=== PATIENT | female | born 1985 | race Caucasian/White ===

== ENCOUNTER 2022-03-20 08:47 | Outpatient (CLI) | payer BC, SELFPAY ==
--- NOTE | ~2022-03-20 | CT_ITS ---
EXAMINATION: CT abdomen pelvis w con DATE: 03/20/2022 09:13 INDICATION: Unspecified abdominal pain. Abdominal bulge near umbilicus. History of bariatric surgery. TECHNIQUE: Computed tomography (CT) of the abdomen and pelvis was performed with 100 CC Omnipaque 350 intravenous contrast. Automated exposure control and iterative reconstruction technique were employe d. Exam dose: 1018.13 mGy-cm total exam DLP. COMPARISON: 05/2018 CT abdomen pelvis FINDINGS: There is mild discoid atelectasis and/or scarring but no consolidation at the lung bases. N ormal heart size. No pericardial or pleural effusion. Status post gastric bypass. The liver, gallbladder, bile ducts, pancreas, pancreatic duct and spleen and adrenal glands appear no rmal. No renal space occupying mass lesion is detected. No hydroureteronephrosis. Peripherally enhancing 1.7 cm left ovarian cyst the uterus and adnexal areas and urinary bladder othe rwise are unremarkable. Normal caliber of the abdominal aorta. No intraperitoneal or retroperitoneal or pelvic mass lesion or adenopathy or ascites. No bowel obstruction or intraperitoneal free air. There are some fluid containing small bowel segment s with air-fluid levels in the left mid and bilateral lower abdomen which may represent enteritis or mild adynamic ileus. Approximately 2.4 cm wide 2.2 cm vertical and 1.4 cm deep fat-containing right supraumbilical hernia with approximately 7.5 mm neck. Small fat-containing umbilical hernia. Very prominent posterior spurring is noted at L4-5 and L3-4. Posterior disc bulging at L5-S1. No suspicious osteolytic or osteoblastic lesions are noted. IMPRESSION: 2.4 x 2.2 x 1.4 cm right supraumbilical ventral abdominal wall fat-containing hernia Small fat-containing umbilical hernia Status post gastric bypass Involuting 1.7 cm left ovarian cyst Mild adynamic ileus or enteritis Reviewed, dictated and finalized at Location A. Reviewed, dictated and finalized at location B. IMPRESSION: 2.4 x 2.2 x 1.4 cm right supraumbilical ventral abdominal wall fat -containing hernia Small fat-containing umbilical hernia Status post gastric bypass Involuting 1.7 cm left ovarian cyst Mild adynamic ileus or enteritis
== END 2022-03-20 08:48 ==
PROVIDERS: PCP Family Medicine
DX: R10.9 Unspecified abdominal pain (principal); K43.9 Ventral hernia without obstruction or gangrene; K42.9 Umbilical hernia without obstruction or gangrene; N83.202 Unspecified ovarian cyst, left side
CPT/HCPCS: 74177; Q9967

== ENCOUNTER 2024-11-03 09:43 | Outpatient (CLI) | payer BC, SELFPAY ==
--- NOTE | ~2024-11-03 | MM_ITS ---
EXAMINATION: MM screening kathi BI w kimmy HISTORY: Screening mammogram TECHNIQUE: Craniocaudal and mediolateral oblique 3-D tomosynthesis images were obtained and synthetic 2-D images were generated. CAD analysis was submitted and interpreted. COMPARISON: No prior mammogram is available for comparison at this institution. BREAST PARENCHYMAL COMPOSITION:Not Dense. There are scattered areas of fibroglandular density. FINDINGS: No suspicious mass, calcification, or architectural distortion are identified in either josesito ast to suggest malignancy. There has been no suspicious interval change. IMPRESSION: No mammographic evidence of malignancy. Recommend routine screening mammography in one year. BI-RADS Category 1: Negative Reviewed, dictated and finalized at location . LE PROGRAMMER
--- OUTSIDE RECORDS SUMMARY | 2024-11-03 10:36 | XMS_ITS | Referral Summary ---
Author Organization [facility] Address [address] [place] [address] Care Team Providers Care Payloader Machine Operator Name Role Phone Unavailable Primary Care Provider Unavailabl e Source Comments [facility],non-owned Affiliates and Associated Physician Practices is amultiple site organization consisting of ambulatory clinics and hospital sitesin [place], [place], [place] and [place]. This disclosure is being madepursuant to the Care Everywhere program and may not contain all information available regarding this patient. Last updated 18.[facility] Allergies Active Allergy Reactions Criticality Noted Date Comments Penicillins 07/11/2016 Azithromycin 07/11/2016 Medications * Be aware that medications may not be up to date on this document. Alwaysverify current medications with the patient. Medication Sig Dispensed Refills Start Date End Date Status fluticasone propionate (FLONASE) 50 MCG/ACT nasal sprayIndications:Eust achian tube disorder, bilateral [place] 2 Sprays into each nostril once daily 1 Bottle 07/11/2016 Active Social History Tobacco Use Types Packs/Day Years Used Date Smoking Tobacco: Every Day Cigarettes Sex and Gender Information Value Date Recorded Sex Assigned at Not on file Gender Identity Not on file Sexual Orientation Not on file Last Filed Vital Signs Vital Sign Reading Time Taken Comments Blood Pressure 128/82 07/11/2016 11:10 AM PORCELAIN TECHNICIAN Pulse 87 07/11/2016 11:10 AM PORCELAIN TECHNICIAN Temperature 36.8 C (98.2 F) 07/11/2016 11:10 AM PORCELAIN TECHNICIAN Respiratory Rate 20 07/11/2016 11:10 AM PORCELAIN TECHNICIAN Oxygen Saturation - - Inhaled Oxygen Concentration - - Weight 97.5 kg (215 lb) 07/11/2016 11:10 AM PORCELAIN TECHNICIAN Height 165.1 cm (5' 5 ) 07/11/2016 11:10 AM PORCELAIN TECHNICIAN Body Mass Index 35.78 07/11/2016 11:10 AM PORCELAIN TECHNICIAN Plan of Treatment Upcoming Encounters Date Type Department Care Team (Late st Contact Info) Description 12/15/2024 9:40 AM CDT Office Visit [facility] - Internal Medicine [address] [place] [address] Ector Reyes MD [address] [place] [address] [phone] ESTEBAN NGUYEN Personal/Family 1985 [address] [place] [address]
--- OUTSIDE RECORDS SUMMARY | 2024-11-03 10:36 | XMS_ITS | Clinical Summary ---
Author Organization [facility] Address [address] [place] [address] Care Team Providers Care Bird Tender Name Role Phone Unavailable Primary Care Provider Unavailabl e Source Comments [facility],non-owned Affiliates and Associated Physician Practices is amultiple site organization consisting of ambulatory clinics and hospital sitesin [place], [place], [place] and [place]. This disclosure is being madepursuant to the Care Everywhere program and may not contain all information available regarding this patient. Last updated 18.[facility] Allergies Active Allergy Reactions Criticality Noted Date Comments Penicillins 07/11/2016 Azithromycin 07/11/2016 Medications * Be aware that medications may not be up to date on this document. Alwaysverify current medications with the patient. Medication Sig Dispensed Refills Start Date End Date Status fluticasone propionate (FLONASE) 50 MCG/ACT nasal sprayIndications:Eust achian tube disorder, bilateral [place] 2 Sprays into each nostril once daily [...] Comments Blood Pressure 128/82 07/11/2016 11:10 AM DOCK HAND Pulse 87 07/11/2016 11:10 AM DOCK HAND Temperature 36.8 C (98.2 F) 07/11/2016 11:10 AM DOCK HAND Respiratory Rate 20 07/11/2016 11:10 AM DOCK HAND Oxygen Saturation - - Inhaled Oxygen Concentration - - Weight 97.5 kg (215 lb) 07/11/2016 11:10 AM DOCK HAND Height 165.1 cm (5' 5 ) 07/11/2016 11:10 AM DOCK HAND Body Mass Index 35.78 07/11/2016 11:10 AM DOCK HAND Plan of Treatment Upcoming Encounters Date Type Department Care Team (Late st Contact Info) Description 12/15/2024 9:40 AM CDT Office Visit [facility] - Internal Medicine [address] [address] Ector Reyes MD [address] [place] [address] [phone] Health Maintenance Due Date Last Done Comments LIPID TESTING 1985 MAMMOGRAM 1985 PAP SMEAR 1985 HIV SCREENING 1998 HEPATITIS C SCREENING 07/09/2001 DTAP/TDAP/TD VACCINES (1 - Tdap) 2002 HEPATITIS B VACCINE (1 of 3 - 19+ 3-dose series) 2002 PNEUMOCOCCAL VACCINE (1 of 2 - PCV) 2002 COVID-19 VACCINE (1 - 2023-2 5 season) 2024 INFLUENZA VACCINE (#1) 2024 , 06/30/2018, 05/31/2016 DEPRESSION SCREENING 09/01/2024 ZOSTER VACCINE (1 of 2) 2033 HIB VACCINE Aged Out No longer eligi ble based on patient's age to complete this topic HPV VACCINE Aged Out No longer eligi ble based on patient's age to complete this topic MENINGOCOCCAL (Group B) VACCINE Aged Out No longer eligible b ased on patient's age to complete this topic MENINGOCOCCAL VACCINE Aged Out No toya nick eligible based on patient's age to complete this topic ESTEBAN NGUYEN Personal/Family 1985 [address] [place] [address]
--- OUTSIDE RECORDS SUMMARY | 2024-11-03 10:36 | XMS_ITS | Clinical Summary ---
Author Organization [facility] Address [address] [place] [address] Phone Care Team Providers Care Licensed Appraiser Name Role Phone Ester Andrade MD Primary Care Provider [phone] Allergies Active Allergy Reactions Criticality Noted Date Comments Azithromycin Anaphylaxis High 01/20/2023 Penicillins Hives High 01/12/2021 Medications HYDROcodone-aceta minophen (HYCET) 7.5-325 mg/15 mL SolutionIndicatio ns:Status post laparoscopic sleeve gastrectomy,Herni a of abdominal cavity Take 15 mL by mouth every 6 hours as needed for Pain. Max Daily Amount: 60 mL 280 mL 02/03/2023 11:01 AM CDT 02/03/2023 Active Active Problems Problem Noted Date Diagnosed Date Benign hypertension 03/19/2021 Morbid obesity with body mass index of 40.0-49.9 03/19/2021 Status post laparoscopic sleeve gastrectomy 03/01 Leukocytosis Tobacco abuse Chronic obstructive pulmonary disease Postoperative hypoxia Family History Medical History Relation Name Comments Hypertension Father Breast Cancer Maternal Grandmother Diabetes Mother Heart Disease Mother Relation Name Status Comments Father Alive Maternal Grandmother Mother Alive Social History Tobacco Use Types Packs/Day Years Used Date Smoking Tobacco: Some Days Cigarettes 0.3 20 Smokeless Tobacco: Never Alcohol Use Standard Drinks/Week Comments Yes 0 (1 standard drink = 0.6 oz pur e alcohol) once a year Feeling Safe Answer Date Recorded Are you in a relationship wi th someone who hurts you emotionally and/or physically? No 02/03/2023 Comments No Sex and Gender Information Value Date Recorded Sex Assigned at Not on file Legal Sex Female 12:43 PM CDT Gender Identity Not on file Sexual Orientation Not on file Last Filed Vital Signs Vital Sign Reading Time Taken Comments Blood Pressure 115/77 02/03/2023 11:10 AM CDT Pulse 72 02/03/2023 11:10 AM CDT Temperature 36.4 C (97.5 F) 02/03/2023 10:49 AM CDT Respiratory Rate 12 02/03/2023 10:4 9 AM CDT Oxygen Saturation 94% 02/03/2023 11: 10 AM CDT Inhaled Oxygen Concentration - - Weight 98.3 kg (216 lb 12.8 oz) 023 10:23 AM CDT Height 167.6 cm (5' 6 ) 01/29/2023 10:2 3 AM CDT Body Mass Index 34.99 01/29/2023 10:23 AM CDT Plan of Treatment Health Maintenance Due Date Last Done Comments Pre-Diabetes and Diabetes Screening 1985 PNEUMOCOCCAL VACCINE 0-49 YE ARS (1 of 2 - PCV) 1989 DTAP/TDAP/TD VACCINES (1 - Tdap) 2002 HEPATITIS B VACCINES (1 of 3 - 19+ 3-dose series) 2002 CERVICAL CANCER SCREENING 2013 BREAST CANCER SCREENING 2023 INFLUENZA VACCINE (#1) 2024 HPV VACCINES Aged Out No longer eligi ble based on patient's age to complete this topic Medical Devices Implanted Type Area Block Making Machine Operator Device Identifier Shelf Expiration Date Model / Serial / Lot Tacker Sorbafix 30/Load [id number] - [id number] Implanted:Qt y: 1 on 02/03/2023 by Jn Erwin MD at [facility] N/A: Abdomen BARD DAVOL 03/28/2024 [id number] / / [id number] Seamguard Endogia 60 Prpl [id number] - [id number] Implanted:Qt y: 1 on 03/19/2021 by Jn Erwin MD at [facility] N/A: Stomach [employer] [id number] 11/09/2023 [id number] / / [id number] Seamguard Endogia 60 Prpl [id number] - [id number] Implanted:Qt y: 1 on 03/19/2021 by Jn Erwin MD at [facility] N/A: Stomach [employer] [id number] 11/09/2023 [id number] [id number] / / [id number] Seamguard Endogia 60 Blk [id number] - [id number] Implanted:Qt y: 1 on 03/19/2021 by Jn Erwin MD at [facility] N/A: Stomach [employer] [id number] 09/26/2023 [id number] / / [id number] Seamguard Endogia 60 Blk [id number] - [id number] Implanted:Qt y: 1 on 03/19/2021 by Jn Erwin MD at [facility] N/A: Stomach [employer] [id number] 11/08/2023 [id number] [id number] / / [id number] Seamguard Endogia 60 Prpl [id number] - [id number] Implanted:Qt y: 1 on 03/19/2021 by Jn Erwin MD at [facility] N/A: Abdomen [employer] 11/09/2023 [id number] [id number] / / [id number] Planting Material Unloader Endoclip Iii 5mm W/Cliplogic [id number] - [id number] Implanted:Qt y: 1 on 03/19/2021 by Jn Erwin MD at [facility] N/A: Abdomen [employer] - COVIDIEN 10/01/2023 [id number] / / [id number] Mesh [address] Med Oval [id number] - [id number] Implanted:Qt y: 1 on 02/03/2023 by Jn Erwin MD at [facility] N/A: Abdomen BARD DAVOL 11/27/2023 [id number] / / [id number] Insurance BCBS BLUE ACCESS/TRUE BLUE PPO RX JAY PLANS (INTERNAL) [facility] RX [employer] Commercial Advance Directives For more information, please contact: [phone] * Full Code (Latest Code Status on File) Date Activated Date Inactivated Comments 03/19/2021 5:10 PM 03/21/2021 2:52 PM Care Teams Licensed Appraiser Relationship Specialty Start Date End Date Ester Andrade MD [address] [place] [address] PCP - General Family Practice 01/09/21
--- OUTSIDE RECORDS SUMMARY | 2024-11-03 10:36 | XMS_ITS | Encounter Summary ---
Author Organization [facility] Address [address] [place] [address] Care Team Providers Care Derrick Hand Name Role Phone Ester Andrade MD Primary Care Provider [phone] Reason for Visit * Reason Onset Date Comments Medical Management 03/19/2021 Spoke w/ Dr. Nguyen Encounter Details Date Type Department Care Team (Late st Contact Info) Description 03/19/2021 Telephone [facility] Admitting [address] [place] [address] [place] [address] [place] [address] [place] [address] Medical Management (Kaley w/ Dr. Nguyen) Social History Tobacco Use Types Packs/Day Years Used Date Smoking Tobacco: Some Days Cigarettes 0.3 20 Smokeless Tobacco: Never Alcohol Use Standard Drinks/Week Comments Yes 0 (1 standard drink = 0.6 oz pur e alcohol) once a year Comments No Sex and Gender Information Value Date Recorded Sex Assigned at Not on file Legal Sex Female 12:43 PM CDT Gender Identity Not on file Sexual Orientation Not on file COVID-19 Exposure Response Date Recorded In the last month, have you been in contact with someone who was confirmed or suspected to have Coronavirus / COVID-19? No / Unsure 03/12/2021 12:08 PM CDT documented as of this encounter Plan of Treatment Not on file documented as of this encounter Visit Diagnoses Not on filedocumented in this encounter Care Teams Derrick Hand Relationship Specialty Start Date End Date Ester Andrade MD [address] [place] [phone] PCP - General Family Practice 01/09/21 documented as of this encounter
--- OUTSIDE RECORDS SUMMARY | 2024-11-03 10:36 | XMS_ITS | Patient Health Summary ---
Author Organization [facility] Address [address] [place] [address] Care Team Providers Care Electric Track Switch Maintainer Name Role Phone Unavailable Primary Care Provider Unavailabl e Note from [facility],non-owned Affiliates and Associated Physician Practices is amultiple site organization consisting of ambulatory clinics and hospital sitesin [place], [place], [place] and [place]. This disclosure is being madepursuant to the Care Everywhere program and may not contain all information available regarding this patient. Last updated 18.[facility] Allergies * Penicillins * Azithromycin Medications * Be aware that medications may not be up to date on this document. Alwaysverify current medications with the patient. * fluticasone propionate (FLONASE) 50 MCG/ACT nasal spray(Started 07/11/2016) [place] 2 Sprays into each nostril once daily Social History Tobacco Use Types Packs/Day Years Used Date Smoking Tobacco: Every Day Cigarettes Sex and Gender Information Value Date Recorded Sex Assigned at Not on file Gender Identity Not on file Sexual Orientation Not on file Last Filed Vital Signs Vital Sign Reading Time Taken Comments Blood Pressure 128/82 07/11/2016 11:10 AM LEATHER TOGGLER Pulse 87 07/11/2016 11:10 AM LEATHER TOGGLER Temperature 36.8 C (98.2 F) 07/11/2016 11:10 AM LEATHER TOGGLER Respiratory Rate 20 07/11/2016 11:10 AM LEATHER TOGGLER Oxygen Saturation - - Inhaled Oxygen Concentration - - Weight 97.5 kg (215 lb) 07/11/2016 11:10 AM LEATHER TOGGLER Height 165.1 cm (5' 5 ) 07/11/2016 11:10 AM LEATHER TOGGLER Body Mass Index 35.78 07/11/2016 11:10 AM LEATHER TOGGLER Procedures * STREP A SCREEN - POINT OF CARE (AMB) STL(Performed 07/11/2016) Performed for Acute pharyngitis, unspecified etiology Results * STREP A SCREEN - POINT OF CARE (AMB) STL (07/11/2016 11:22 AM LEATHER TOGGLER) Strep A Rapid POCT Negative Negative Strep A Internal Control Present Lot # [id number] Expiration Date [id number] Throat ENTIRE THROAT (SURFACE REGION OF NECK) / Unknown 07/11/2016 11:22 AM LEATHER TOGGLER Joycelyn Rubio [employer] [facility] - POINT O F CARE ORDERABLES
== END 2024-11-03 09:44 | disposition home or self-care (01) ==
LOC: ANHIMG 09:45
PROVIDERS: PCP Family Medicine; Visit Provider Obstetrics & Gynecology
DX: Z12.31 Encounter for screening mammogram for malignant neoplasm of breast (principal)
CPT/HCPCS: 77063; 77067

== ENCOUNTER 2025-02-01 08:28 | Outpatient (CLI) | payer BC, SELFPAY ==
--- NOTE | 2025-02-01 08:35 | ECG_ITS ---
Test Date: 2025-02-01 09:03:29 Measurements Intervals [place] Rate: 69 P: 56 AK: 150 QRS: 10 QRSD: 82 T: 17 QT: 400 QTc: 431 Interpretive Statements SINUS RHYTHM BASELINE ARTIFACT- I, II, III, AVR, AVL, AVF, V4 NORMAL ECG No previous ECG available for comparison Electronically Signed On 02-01-2025 09:24:56 CDT by Avinash Canales D.O.
--- OUTSIDE RECORDS SUMMARY | 2025-02-01 08:35 | XMS_ITS | Clinical Summary ---
Author Organization [facility] Address [address] [place] [address] Phone Care Team Providers Care President North America Name Role Phone Ester Andrade MD Primary Care Provider [phone] Allergies Active Allergy Reactions Criticality Noted Date [...] 10:23 AM CDT Height 167.6 cm (5' 6) 01/29/2023 10:2 3 AM CDT Body Mass Index 34.99 01/29/2023 10:23 AM CDT Plan of Treatment Health Maintenance Due Date Last Done Comments Pre-Diabetes and Diabetes Screening 1983 DTAP/TDAP/TD VACCINES (1 - Tdap) 2002 HEPATITIS B VACCINES (1 of 3 - 19+ 3-dose series) 2002 HPV/Cotest (21-29) 2004 CERVICAL CANCER SCREENING 2013 HPV/Cotest (30-65) 2013 PAP SMEAR 2013 BREAST CANCER SCREENING 2023 INFLUENZA VACCINE (#1) 2024 HPV VACCINES Aged Out No longer eligi ble based on patient's age to complete this topic Medical Devices Implanted Type Area Diesel Roller Operator Device Identifier Shelf Expiration Date Model / Serial / Lot Tacker Sorbafix 30/Load [id number] - [id number] Implanted:Qt y: 1 on 02/03/2023 by Jn Erwin MD at [facility] N/A: Abdomen BARD DAVOL 03/28/2024 [id number] / / [id number] Seamguard Endogia 60 Prpl [id number] - [id number] Implanted:Qt y: 1 on 03/19/2021 by Jn Erwin MD at [facility] N/A: Stomach [employer] [id number] 11/09/2023 [id number] / / [id number] Seamguard Endogia 60 Prpl [id number] - [id number] Implanted:Qt y: 1 on 03/19/2021 by Jn Erwin MD at [facility] N/A: Stomach [employer] [id number] 11/09/2023 [id number] / / [id number] Seamguard Endogia 60 Blk [id number] - [id number] Implanted:Qt y: 1 on 03/19/2021 by Jn Erwin MD at [facility] N/A: Stomach [employer] [id number] 09/26/2023 [id number] / / [id number] Seamguard Endogia 60 Blk [id number] - [id number] Implanted:Qt y: 1 on 03/19/2021 by Jn Erwin MD at [facility] N/A: Stomach [employer] [id number] 11/08/2023 [id number] / / [id number] Seamguard Endogia 60 Prpl [id number] - [id number] Implanted:Qt y: 1 on 03/19/2021 by Jn Erwin MD at [facility] N/A: Abdomen [employer] 11/09/2023 [id number] / / [id number] Produce Team Lead Endoclip Iii 5mm W/Cliplogic [id number] - [id number] Implanted:Qt y: 1 on 03/19/2021 by Jn Erwin MD at [facility] N/A: Abdomen MEDTR[employer] - COVIDIEN 10/01/2023 [id number] / / [id number] Mesh [address] Med Oval [id number] - [id number] Implanted:Qt y: 1 on 02/03/2023 by Jn Erwin MD at [facility] N/A: Abdomen BARD DAVOL 11/27/2023 [id number] / / [id number] Insurance BCBS BLUE ACCESS/TRUE BLUE PPO RX JAY PLANS (INTERNAL) [facility] Plans RX [employer] Commercial Advance Directives For more information, please contact: [phone] * Full Code (Latest Code Status on File) Date Activated Date Inactivated Comments 03/19/2021 5:10 PM 03/21/2021 2:52 PM Care Teams President North [place] Relationship Specialty Start Date End Date Ester Andrade MD [address] [place] [address] PCP - General Family Practice 01/09/21
--- OUTSIDE RECORDS SUMMARY | 2025-02-01 08:35 | XMS_ITS | Encounter Summary ---
Author Organization [facility] Address [address] [place] [address] Care Team Providers Care Sieve Grader Tender Name Role Phone Ester Andrade MD Primary Care Provider [phone] Reason for Visit * Reason Onset Date Comments Medical Management 03/19/2021 Spoke w/ Dr. Nguyen Encounter Details Date Type Department Care Team (Late st Contact Info) Description 03/19/2021 Telephone [facility] Admitting [address] [place] [address] [place] [address] [place] [address] [place] [address] Medical Management (Kaley w/ Dr. [...] on filedocumented in this encounter Care Teams Sieve Grader Tender Relationship Specialty Start Date End Date Ester Andrade MD [address] [place] [phone] PCP - General Family Practice 01/09/21 documented as of this encounter
--- OUTSIDE RECORDS SUMMARY | 2025-02-01 08:35 | XMS_ITS | Clinical Summary ---
Author Organization [facility] Address [address] [place] [address] Care Team Providers Care Extract Mixer Name Role Phone Unavailable Primary Care Provider Unavailabl e Source Comments [facility],non-owned Affiliates and Associated Physician Practices is amultiple site organization consisting of ambulatory clinics and hospital sitesin [place], [place], [place] and [place]. This disclosure is being madepursuant to the Care Everywhere program and may not contain all information available regarding this patient. Last updated 18.[facility] [employer] Allergies Active Allergy Reactions Criticality Noted Date Comments Penicillins 07/11/2016 Azithromycin 07/11/2016 Medications * Be aware that medications may not be up to date on this document. Alwaysverify current medications with the patient. fluticasone propionate (FLONASE) 50 MCG/ACT nasal sprayIndication s:Eustachian tube disorder, bilateral [place] 2 Sprays into each nostril once daily 1 Bottle 07/11/2016 Active Social History Tobacco Use Types Packs/Day Years Used Date Smoking Tobacco: Every Day Cigarettes Comments Unknown Sex and Gender Information Value Date Recorded Sex Assigned at Not on file Legal Sex Female 10:56 AM DECKER OPERATOR Gender Identity Not on file Sexual Orientation Not on file Last Filed Vital Signs Vital Sign Reading Time Taken Comments Blood Pressure 128/82 07/11/2016 11:10 AM DECKER OPERATOR Pulse 87 07/11/2016 11:10 AM DECKER OPERATOR Temperature 36.8 C (98.2 F) 07/11/2016 11:10 AM DECKER OPERATOR Respiratory Rate 20 07/11/2016 11:10 AM DECKER OPERATOR Oxygen Saturation - - Inhaled Oxygen Concentration - - Weight 97.5 kg (215 lb) 07/11/2016 11:10 AM DECKER OPERATOR Height 165.1 cm (5' 5) 07/11/2016 11:10 AM DECKER OPERATOR Body Mass Index 35.78 07/11/2016 11:10 AM DECKER OPERATOR Plan of Treatment Health Maintenance Due Date Last Done Comments LIPID TESTING 1983 MAMMOGRAM 1983 PAP SMEAR 1983 HIV SCREENING 1998 HEPATITIS C SCREENING 07/09/2001 DTAP/TDAP/TD VACCINES (1 - Tdap) 2002 HEPATITIS B VACCINE (1 of 3 - 19+ 3-dose series) 2002 PNEUMOCOCCAL VACCINE (1 of 2 - PCV) 2002 COVID-19 VACCINE (1 - 2023-2 5 season) 2024 DEPRESSION SCREENING 09/01/2024 INFLUENZA VACCINE (Season Ended) 2025 06/30/2021, 06/30/2018, 05/31/2016 ZOSTER VACCINE (1 of 2) 2033 HIB VACCINE Aged Out No longer eligi ble based on patient's age to complete this topic HPV VACCINE Aged Out No longer eligi ble based on patient's age to complete this topic MENINGOCOCCAL (Group B) VACCINE SHARED DECISION-MAKING Aged Out No longer eligible based on patient's age to complete this topic MENINGOCOCCAL GROUPS A/C/Y/W VACCINE Aged Out No longer eligible b ased on patient's age to complete this topic Insurance [facility]
[2025-02-01 09:20] LABS: Basophils Absolute Auto 0.1 K/mm3 (0.0-0.1); Basophils Percent Auto 0.5 % (0.2-1.2); Eosinophils Absolute Auto 0.3 K/mm3 (0-0.3); Eosinophils Percent Auto 2.6 % (0-4.4); Hematocrit 41.6 % (37.0-47.0); Hemoglobin 13.5 g/dL (12.0-15.0); Immature Granulocyte Absolute 0.02 K/mm3 (0.00-0.031); Immature Granulocyte Percent A 0.2 % (0-0.5); Lymphocytes Absolute Auto 2.21 K/mm3 (0.9-3.2); Lymphocytes Percent Auto 21.7 % (18.3-44.2); Mean Corpuscular HGB Conc 32.5 g/dl (32-36); Mean Corpuscular Hemoglobin 26.9 pg (26-34); Mean Corpuscular Volume 82.9 fl (80-100); Mean Platelet Volume 9.8 fl (7.4-10.4); Monocytes Absolute Auto 0.9 K/mm3 (0.1-0.6); Monocytes Percent Auto 8.4 % (2.6-8.5); Neutrophils Absolute Auto 6.8 K/mm3 (1.3-6.7); Neutrophils Percent Auto 66.6 % (45.5-73.1); Platelet Count Result 328 k/mm3 (150-375); Red Blood Count 5.02 M/mm3 (4.2-5.4); Red Cell Distribution Width 14.2 % (11.5-14.5); White Blood Count 10.2 K/mm3 (4.5-10.0)
== END 2025-02-01 08:29 | disposition home or self-care (01) ==
LOC: ANHSURGERY 08:33
PROVIDERS: PCP Family Medicine; Visit Provider Obstetrics & Gynecology
DX: N92.0 Excessive and frequent menstruation with regular cycle (principal); I10 Essential (primary) hypertension; Z01.818 Encounter for other preprocedural examination
CPT/HCPCS: 36415; 85025; 86850; 86900; 86901; 93005

== ENCOUNTER 2025-02-04 01:00 | Day surgery (SDC) | payer BC, SELFPAY ==
[2025-01-31 10:27] VITALS: BMI 37.8
--- NOTE | 2025-01-31 10:28 | PC.NURSE ---
Report to the Outpatient Waiting Room, entrance under the green pavilion located off [facility], at time _0600_ on date _[id number]_. Planned Procedure Time: _0730_.? Time changes happen often and if your time is changed the preop area will call you the afternoon before. - You and your visitor will be asked to self-screen and do not enter if you have any COVID symptoms. Please call surgeon if you need to reschedule. - A mask is optional within the hospital at this time. Patients may have clear liquids (water, carbonated beverages, clear teas, apple juice) until 3 hours prior to surgery with a maximum of 20 ounces. - No food from midnight until time of surgery and no smoking, or chewing tobacco (or any form of nicotine). No chewing gum, candy or mints. Take only the following medications with a SIP of water on the morning of surgery: __None DO NOT STOP ANY OF YOUR OTHER PRESCRIPTION MEDICATIONS PRIOR TO SURGERY EXCEPT THE FOLLOWING Hold all vitamins and supplements for 3 days per anesthesiologist. Medications to discontinue per physician ___Patient stopped Phentermine [id number] Date to take last dose Please no make-up, nail ivorian, hairspray, perfume, deodorant, or body powder the day of surgery.? No jewelry (including any body piercings) or valuables the day of surgery, leave them at home.? Please take a shower or bath the night before, or the morning of, surgery with an antibacterial soap.? Wear comfortable, loose fitting clothing.? - Jewelry must be removed prior to entering the operating room.? Rings and piercings that are not removed may be cut off. - The hospital will not accept responsibility for valuables.? - Please leave all valuables, including medications, at home the day of surgery. If you are going home after surgery, a licensed p d driver must drive you home.? - NO public transportation without another adult if you receive anesthesia. - We recommend that an adult stay with you for 24 hours following discharge. - We also recommend that you do not drive, make important decision, drink alcoholic beverages, or take any drugs that were not prescribed by your health care provider for at least 24 hours after your discharge time. Follow any additional instructions given to you from your surgeon. Telephone instructions given to __Rosy___and asked if any additional questions and then verbalized understanding. Patient advised to call surgeon office or pre surgery nurse liaison [phone] if any additional questions.
--- NOTE | 2025-02-01 07:17 | PM.IMHP ---
H&P: HPI History of Present Illness Date/Time: 02/01/25 07:17 Chief Complaint: Excessive bleeding and dysmenorrhea Narrative: 39-year-old female status post ablation who continues to bleed with pain discomfort and dysmenorrhea. Imaging has been on helpful. She will undergo robotic total vaginal hysterectomy and bilateral salpingectomy. Risks and benefits reviewed including not exclusive of , aspiration pneumonia, bleeding, transfusion, perforation injury to bowel, bladder, ureters, or other internal organs with need for open laparotomy. She has had a couple hernia repairs performed the past as well as a gastric sleeve and 2 C sections so scar tissue was expected to be present making this little bit more difficult. Review of Systems Review of Systems: All systems reviewed & are unremarkable except as noted in HPI and below PMFSH Past Medical History Medical History Obesity, morbid, BMI 40.0-49.9 Essential hypertension Tobacco abuse .5-1 PPD x 17 years Surgical History Surgical History Status post gastric bypass for obesity Family History Family History Mother Diabetes mellitus Hypertension Family history of coronary artery disease Family history of diabetes mellitus in first degree relative Family history of heart disease in male family member before age 55 Father Hypertension Sibling Hypertension Social History Social History Smoking packs per day: 1 Smoking cigarettes per day: 20.0 Years smoked: 17 Smoking pack-years: 17.00 Smoking status: Former smoker Tobacco type: cigarettes Second hand tobacco smoke exposure: Yes Smoking end date: 01/31/21 Alcohol intake: never Substance use: never Substance use type: does not use Living arrangements: with family Gender identity (if verbalized by the patient): Female Spiritual care concerns: No Meds Home Medications and Allergies Home Medications ?Medication ?Instructions ?Recorded ?Confirmed ?Type multivitamin 1 tablet PO DAILY 07/11/21 01/31/25 History ergocalciferol (vitamin D2) 1,250 1,250 mcg PO WEEKLY #12 caps 03/29/22 01/31/25 Rx mcg (50,000 unit) capsule (Vitamin D2) cyanocobalamin (vitamin B-12) 1,000 mcg subcut MONTHLY 01/31/25 01/31/25 History 1,000 mcg/mL injection solution phentermine 30 mg capsule 30 mg PO DAILY 01/31/25 01/31/25 History Allergies Allergy/AdvReac Type Severity Reaction Status Date / Time amoxicillin Allergy Unknown Hives Verified 01/31/25 10:18 azithromycin Allergy Unknown blistering Verified 01/31/25 10:18 rash Penicillins Allergy Unknown Hives Verified 01/31/25 10:18 Exam Const: General: cooperative, healthy appearing, comfortable and obese Orientation/consciousness: oriented to person, oriented to place and oriented to time HENMT: Head: normal to inspection Resp: Effort & Inspection: normal respiratory effort Cardio: Rate: regular rate Rhythm: regular rhythm Heart sounds: S1 normal heart sound present and S2 normal heart sound present GI: Inspection: normal to inspection, [place] present and obesity : External Female Exam: normal external appearance Speculum Exam - Vagina: normal appearance of the vagina Speculum Exam - Cervix: normal appearance of the cervix Bimanual exam- vagina & uterus: enlarged Bimanual Exam- Adnexa, other: normal adnexae Assessment and Plan Assessment and plan (1) Excessive bleeding: Code(s): R58 - Hemorrhage, not elsewhere classified Status: Acute Plan Proceed with robotic total vaginal hysterectomy and bilateral salpingectomy
[2025-02-04] VITALS (11 sets, daily range): BP systolic 133–165; BP diastolic 75–99; PULSE 57–79; RESP 15–18; TEMP 36.1–36.7; O2SAT 92–100
--- OUTSIDE RECORDS SUMMARY | 2025-02-04 01:02 | XMS_ITS | Clinical Summary ---
Author Organization [facility] Address [address] [place] [address] Care Team Providers Care Wardrobe Attendant Name Role Phone Unavailable Primary Care Provider Unavailabl e Source Comments [facility],non-owned Affiliates and Associated Physician Practices is amultiple site organization consisting of ambulatory clinics and hospital sitesin [place], [place]. This disclosure is being madepursuant to the Care Everywhere program and may not contain all information available regarding this patient. Last updated 18.[facility] Allergies Active Allergy Reactions Criticality Noted Date Comments Penicillins 07/11/2016 Azithromycin 07/11/2016 Medications * Be aware that medications may not be up to date on this document. Alwaysverify current medications with the patient. fluticasone propionate (FLONASE) 50 MCG/ACT nasal sprayIndication s:Eustachian tube disorder, bilateral [place] 2 Sprays into each nostril once daily 1 Bottle 07/11/2016 Active Social History Tobacco Use Types Packs/Day Years Used Date Smoking Tobacco: Every Day Cigarettes Comments Unknown Sex and Gender Information Value Date Recorded Sex Assigned at Not on file Legal Sex Female 10:56 AM STUDIO OWNER Gender Identity Not on file Sexual Orientation Not on file Last Filed Vital Signs Vital Sign Reading Time Taken Comments Blood Pressure 128/82 07/11/2016 11:10 AM STUDIO OWNER Pulse 87 07/11/2016 11:10 AM STUDIO OWNER Temperature 36.8 C (98.2 F) 07/11/2016 11:10 AM STUDIO OWNER Respiratory Rate 20 07/11/2016 11:10 AM STUDIO OWNER Oxygen Saturation - - Inhaled Oxygen Concentration - - Weight 97.5 kg (215 lb) 07/11/2016 11:10 AM STUDIO OWNER Height 165.1 cm (5' 5) 07/11/2016 11:10 AM STUDIO OWNER Body Mass Index 35.78 07/11/2016 11:10 AM STUDIO OWNER Plan of Treatment Health Maintenance Due Date [...] patient's age to complete this topic Insurance [facility]
--- OUTSIDE RECORDS SUMMARY | 2025-02-04 01:02 | XMS_ITS | Encounter Summary ---
Author Organization [facility] Address [address] [place] [address] Care Team Providers Care Packing Shed Supervisor Name Role Phone Ester Andrade MD Primary Care Provider [phone] Reason for Visit * Reason Onset Date Comments Medical Management 03/19/2021 Spoke w/ Dr. Nguyen Encounter Details Date Type Department Care Team (Late st Contact Info) Description 03/19/2021 Telephone [facility] Admitting [address] [place] [address] [place] [address] [place] [address] [place] [address] Medical Management (Kaley w/ Dr. [...] on filedocumented in this encounter Care Teams Packing Shed Supervisor Relationship Specialty Start Date End Date Ester Andrade MD [address] [place] [phone] PCP - General Family Practice 01/09/21 documented as of this encounter
--- OUTSIDE RECORDS SUMMARY | 2025-02-04 01:02 | XMS_ITS | Clinical Summary ---
Author Organization [facility] Address [address] [place] [address] Phone Care Team Providers Care Dentist Private Practice Name Role Phone Ester Andrade MD Primary Care Provider [phone] Allergies Active Allergy Reactions Criticality Noted Date [...] this topic Medical Devices Implanted Type Area Stamp Collector Device Identifier Shelf Expiration Date Model / Serial / Lot Tacker Sorbafix 30/Load [id number] - [id number] Implanted:Qt y: 1 on 02/03/2023 by Jn Erwin MD at [facility] N/A: Abdomen BARD DAVOL 03/28/2024 [id number] / / [id number] Seamguard Endogia 60 Prpl [id number] - [id number] Implanted:Qt y: 1 on 03/19/2021 by Jn Erwin MD at [facility] N/A: Stomach [employer] [id number] 11/09/2023 [id number] 0P / / [id number] Seamguard Endogia 60 Prpl [id number] - [id number] Implanted:Qt y: 1 on 03/19/2021 by Jn Erwin MD at [facility] N/A: Stomach [employer] [id number] 11/09/2023 [id number] 0P / / [id number] Seamguard Endogia 60 Blk [id number] - [id number] Implanted:Qt y: 1 on 03/19/2021 by Jn Erwin MD at [facility] N/A: Stomach [employer] [id number] 09/26/2023 [id number] 0B / / [id number] Seamguard Endogia 60 Blk [id number] - [id number] Implanted:Qt y: 1 on 03/19/2021 by Jn Erwin MD at [facility] N/A: Stomach [employer] [id number] 11/08/2023 [id number] 0B / / [id number] Seamguard Endogia 60 Prpl [id number] - [id number] Implanted:Qt y: 1 on 03/19/2021 by Jn Erwin MD at [facility] N/A: Abdomen [employer] 11/09/2023 [id number] 0P / / [id number] Salesperson [employer] Endoclip Iii 5mm W/Cliplogic [id number] - [id number] Implanted:Qt y: 1 on 03/19/2021 by Jn Erwin MD at [facility] N/A: Abdomen MEDTRON[employer] - COVIDIEN 10/01/2023 [id number] / / [id number] Mesh [address] Med Oval [id number] - [id number] Implanted:Qt y: 1 on 02/03/2023 by Jn Erwin MD at [facility] N/A: Abdomen BARD DAVOL 11/27/2023 [id number] / / [id number] Insurance BCBS BLUE ACCESS/TRUE BLUE PPO RX JAY PLANS (INTERNAL) [facility] Plans RX [employer] Commercial Advance Directives For more information, please contact: [phone] * Full Code (Latest Code Status on File) Date Activated Date Inactivated Comments 03/19/2021 5:10 PM 03/21/2021 2:52 PM Care Teams Dentist Private Practice Relationship Specialty Start Date End Date Ester Andrade MD [address] [place] [address] PCP - General Family Practice 01/09/21
--- NOTE | 2025-02-04 03:41 | WPDHPUPDATE1 ---
History and Physical Update Update Date/Time: 02/04/25 03:41 History and Physical has been reviewed, including an updated exam of the patient. There are NO changes in the patient's condition. Risks, benefits, and alternatives have been discussed and questions answered. Patient agrees to proceed with procedure.
[2025-02-04] MEDS: ACETAMINOPHEN 500 MG TABLET 1000 MG PO ×4 (06:20→23:50)
[2025-02-04] MEDS: LACTATED RINGERS 1,000 ML 30 ML IV CONT ×2 (06:25→09:03)
[2025-02-04] MEDS: KETOROLAC 15 MG/ML VIAL (*BKC) IV PUSH (06:30)
--- NOTE | 2025-02-04 06:39 | P.PNAN_ITS ---
Anes - Initial Pre Proc Eval Procedure: Operation Date: 02/04/25 07:30 Proposed Procedures p Robotic Assisted Total Vaginal Hysterectomy with Bilateral Salpingectomy - Adolfo Arias MD Date/Time: 02/04/25 06:39 Surgeon: Adolfo Arias MD Pre Op Diagnosis: Failed Uterine ablation, Exc Bleed, Dysmenorrhea Patient Data Age: 39 Gender: F Height: 1.65 m Weight: 104.4 kg Last Vital Signs Temp 36.1 C L 02/04/25 06:15 Pulse 79 02/04/25 06:15 Resp 18 02/04/25 06:15 BP 165/99 H 02/04/25 06:15 Pulse Ox 100 02/04/25 06:15 O2 Del Method Room Air 02/04/25 06:15 Allergies Allergy/AdvReac Type Severity Reaction Status Date / Time amoxicillin Allergy Unknown Hives Verified 02/04/25 06:32 azithromycin Allergy Unknown blistering Verified 02/04/25 06:32 rash Penicillins Allergy Unknown Hives Verified 02/04/25 06:32 Home Medications ?Medication ?Instructions ?Recorded ?Confirmed ?Type multivitamin 1 tablet PO DAILY 07/11/21 02/04/25 History ergocalciferol (vitamin D2) 1,250 1,250 mcg PO WEEKLY #12 caps 03/29/22 02/04/25 Rx mcg (50,000 unit) capsule (Vitamin D2) cyanocobalamin (vitamin B-12) 1,000 mcg subcut MONTHLY 01/31/25 02/04/25 History 1,000 mcg/mL injection solution phentermine 30 mg capsule 30 mg PO DAILY 01/31/25 01/31/25 History hydrocodone 5 mg-acetaminophen 325 1 tablet PO Q4H PRN pain #20 tabs 02/04/25 Rx mg tablet Patient hx anesthesia problems: none Family hx anesthesia problems: none Results Review: All pre-operative results and documents have been reviewed as part of the pre- operative evaluation. [facility] Past Medical History Medical History Obesity, morbid, BMI 40.0-49.9 Essential hypertension Tobacco abuse .5-1 PPD x 17 years Surgical History Surgical History Status post gastric bypass for obesity Family History Family History Mother Diabetes mellitus Hypertension Family history of coronary artery disease Family history of diabetes mellitus in first degree relative Family history of heart disease in male family member before age 55 Father Hypertension Sibling Hypertension Social History Social History Smoking packs per day: 1 Smoking cigarettes per day: 20.0 Years smoked: 17 Smoking pack-years: 17.00 Smoking status: Former smoker Tobacco type: cigarettes Second hand tobacco smoke exposure: Yes Smoking end date: 01/31/21 Alcohol intake: never Substance use: never Substance use type: does not use Living arrangements: with family Gender identity (if verbalized by the patient): Female Spiritual care concerns: No Anes - Eval Final PreProcedure Day of Procedure 02/04/25 06:39 Patient weight: obese Heart: regular rate and rhythm Lungs: clear to auscultation Airway: Mallampati scale class II Neurological: alert and oriented Last oral intake: >/= 8 hours ASA classification: III Emergent: no Anesthetic plan: proceed Anesthesia type and monitoring: general ETT and standard monitoring Results Review: All pre-operative results and documents have been reviewed as part of the pre- operative evaluation. Informed Consent: The patient's anesthetic plan and its attendant risks and benefits were discussed with the patient/family/POA. Questions were solicited and answers provided to the satisfaction of the patient/family/POA.
[2025-02-04] MEDS: SCOPOLAMINE 1 MG PATCH 1 PATCH TRANSDERM (06:41)
[2025-02-04 06:44] LABS: BEDSIDEPREGUCG Negative (Negative)
[2025-02-04] MEDS: ceFAZolin 2 GM/D5W 50 ML 2 GM/50 ML BAG IVPB (07:28)
--- NOTE | 2025-02-04 08:39 | S_PTH ---
PATIENT: Rosy Nguyen LOC: [facility] U#:[id number] AGE/SX: 39/F ROOM: RE02/04/[address]: Adolfo Arias MD : 1985 BED: DIS: 02/05/2025 SPEC #: [id number] RECD: 02/04/25 09:38 STATUS: BRENDEN REQ #: [id number] BRONWYN: 02/04/25 08:[address]: Adolfo Ha DEPT: [facility] Surgical RECD BY: Zoey Batista ENTERED: 02/04/25 09:38 SP TYPE: Surgical OTHR DR: Ester AndradeMD Tissues: A - Uterus Procedures: Hematoxylin and Eosin Stain Gross and Microscopic Level 5
--- NOTE | 2025-02-04 08:50 | W.PM.PROC2 ---
Procedure Note - Detailed Date of Procedure 02/04/25 Pre-op Diagnosis Failed Uterine ablation, Exc Bleed, Dysmenorrhea Post-op Diagnosis Same Procedure Performed Robotic total vaginal hysterectomy and bilateral salpingectomy with lysis of adhesions Surgeon Adolfo Arias MD Anesthesia General Indications Since female status post tubal severe dysmenorrhea failed ablation. Findings Enlarged uterus. Fair amount of scar tissue anteriorly from the bladder to the anterior portion uterus. Normal-appearing ovaries. Tubes status post tubal ligation. Description of Procedure The patient was prepped and draped in the normal sterile placed in dorsal position. Excellent endotracheal anesthesia weighted speculum placed in posterior fornix vagina. Anterior lip of the cervix grasped with a single-tooth tenaculum. Uterus sounded to 11cm. Serial dilatation with fragmented dilators performed followed by passage of the 10. MICHELLE and the 3. Cold cup. Next the 16 Mongolian catheter was placed in the bladder. The single-tooth tenaculum weighted speculum removed. The gloves were changed. A supraumbilical incision made the Veress needle passed into the abdomen. The abdomen was filled with CO2 gas [id number]. The 8mm trocar advanced in the abdomen. Downside visualized injury seen patient placed in Trendelenburg and right left lateral quadrant incisions made. The 8mm trocars advanced under direct visualization in the right left lower quadrant. The left upper quadrant incision was made this was a fair amount of scar tissue anteriorly and this was placed in the abdomen assuring no injury. The robot was docked. Attention was turned to the treatment counselor. Anteriorly a bladder flap was formed by sharply dissecting the peritoneum after the a left round ligament was grasped, burned, cut. This involved sharp detail as the bladder was markedly adherent to the fundus of the uterus. Next the left fallopian tube was noted to be bisected. The distal portion was sharply dissected off the ovarian complex and passed through the certified surgical tech/first assistant port. The disc the proximal portion was sharply dissected and left attached to its uterine origin. In similar fashion the distal portion of the right fallopian tube was grasped burned removed from the ovarian complex and the proximal portion remained. The left utero-ovarian ligament was skeletonized to conserve the left ovary this was clamped, burned, cut and brought to level of previously cut round ligament. Conserving the right ovary, the utero-ovarian ligament was clamped, burned, cut brought to the previously cut round ligament on the right. Next the cardinal broad ligaments on the left were serially skeletonized clamping burning cutting and bringing this down the lateral edge of the uterus until the large tortuous uterine vessels could be seen. These were individually clamped, burned, cut. In similar fashion on the right the cardinal broad ligaments were serially skeletonized clamping burning cutting and hugging the cervix and uterus until the large uterine vessels could be seen on the right these were individually clamped, burned, cut. Blanching of the uterus was noted a colpotomy incision was made. The cervix uterus and remaining portion tubes removed through the vagina. Irrigation undertaken to clear blood loss was estimated. The vagina was then closed with continuous running 0V lock from lateral edge to lateral edge back to the midline. Irrigation undertaken to clear blood loss estimated 25cc Abril was placed over the raw surface areas and hemostasis was assured. The robot was undocked. The gas removed from the abdomen. The trocars removed and the incisions closed with 4-0 Monocryl and glue. The patient was awakened went recovery in satisfactory condition. All sponge, needle instrument counts were correct. There were no immediate Complications Estimated Blood Loss 25 Drains No Packing No Pathology Yes Complications No immediate complications Condition Stable Disposition PACU
--- NOTE | 2025-02-04 08:57 | P.DS_ITS ---
DS: Admitting Diagnosis Discharge Date 02/05/25 <Hazel Cotto MD - Last Filed: 02/05/25 10:57> Admitting Diagnosis Excessive bleeding <Adolfo Arias MD - Last Filed: 02/04/25 08:59> DS: Discharge Diagnosis Discharge Diagnosis (1) Excessive bleeding: Code(s): R58 - Hemorrhage, not elsewhere classified <Adolfo Arias MD - Last Filed: 02/04/25 08:59> Status: Acute <Adolfo Arias MD - Last Filed: 02/04/25 08:59> DS: Summary Hospital Course Reason for hospitalization: Patient was admitted for robotic total vaginal hysterectomy and bilateral salpingectomy with lysis of adhesions on 02/04/2025 <Adolfo Arias MD - Last Filed: 02/04/25 08:59> Hospital Course: Patient's hospital course was unremarkable. She remained afebrile. She was up, voiding without difficulty, eating regular diet, ambulating, and generally without complaints. <Adolfo Arias MD - Last Filed: 02/04/25 08:59> Time Spent with Patient Time attestation: Total time spent providing and/or coordinating discharge services: <Adolfo Arias MD - Last Filed: 02/04/25 08:59> Exam Const: General: cooperative, healthy appearing, comfortable and overweight <Adolfo Arias MD - Last Filed: 02/04/25 08:59> Orientation/consciousness: oriented to person, oriented to place and oriented to time <Adolfo Arias MD - Last Filed: 02/04/25 08:59> Resp: Effort & Inspection: normal respiratory effort <Adolfo Arias MD - Last Filed: 02/04/25 08:59> Cardio: Rate: regular rate <Adolfo Arias MD - Last Filed: 02/04/25 08:59> Rhythm: regular rhythm <Adolfo Arias MD - Last Filed: 02/04/25 08:59> Heart sounds: S1 normal heart sound present and S2 normal heart sound present <Adolfo Arias MD - Last Filed: 02/04/25 08:59> GI: Inspection: normal to inspection and incision (Wounds are clean dry and intact) <Adolfo Arias MD - Last Filed: 02/04/25 08:59> DS: Data Data Completed and Pending Pending studies at discharge: Pending at discharge 02/04/25 08:39 Surgical [PTH] Routine <Adolfo Arias MD - Last Filed: 02/04/25 08:59> Labs on day of discharge: Labs from last 24 hours 02/04/25 06:42 POC Urine HCG, Qual Negative <Adolfo Arias MD - Last Filed: 02/04/25 08:59> Discharge Plan Discharge Patient Disposition: Home <Adolfo Arias MD - Last Filed: 02/04/25 08:59> Discharge Instructions: Remove the Scopolamine patch that was placed behind your ear in 72 hours or less. Wash your hands after touching. <Adolfo Arias MD - Last Filed: 02/04/25 08:59> Patient Language: Indonesian <Adolfo Arias MD - Last Filed: 02/04/25 08:59> Stand Alone Forms: General Discharge Instructions <Adolfo Arias MD - Last Filed: 02/04/25 08:59> Follow-up/Referrals: Adolfo Ha MD [Physician] - <Adolfo Arias MD - Last Filed: 02/04/25 08:59> Discharge Medications: New hydrocodone-acetaminophen 5-325 mg tablet 1 tablet PO Q4H PRN (Reason: pain) Qty: 20 0RF Continued multivitamin Tablet 1 tablet PO DAILY cyanocobalamin (vitamin B-12) 1,000 mcg/mL solution 1,000 mcg subcut MONTHLY Patient Comments: Says takes every 3 weeks. phentermine 30 mg capsule 30 mg PO DAILY ergocalciferol (vitamin D2) [Vitamin D2] 1,250 mcg (50,000 unit) capsule 1,250 mcg PO WEEKLY Qty: 12 2RF <Adolfo Arias MD - Last Filed: 02/04/25 08:59>
--- NOTE | 2025-02-04 10:20 | PC.NURSE ---
This patient, Rosy Nguyen, was received from PACU on 02/04/25 at 1020. Patient/family oriented to unit policies and routines.
[2025-02-04] MEDS: DEXTROSE 5%/LACTATED RINGERS 1,000 ML 125 ML IV CONT (11:20)
[2025-02-04] MEDS: ENOXAPARIN 40 MG/0.4 ML SYRINGE SUB-Q (11:37)
[2025-02-04] MEDS: DOCUSATE SODIUM 100 MG CAPSULE PO (13:47)
[2025-02-04] MEDS: SIMETHICONE 80 MG TAB.CHEW PO (13:47)
[2025-02-04] MEDS: oxyCODONE HCL (*CRX) 5 MG TAB IR PO (17:24)
[2025-02-05 04:00] VITALS: BP 148/90; PULSE 70; RESP 18; TEMP 36.8; O2SAT 98
[2025-02-05 04:49] LABS: Basophils Percent Auto 0.2 % (0.2-1.2); Eosinophils Percent Auto 0.1 % (0-4.4); Hematocrit 40.9 % (37.0-47.0); Hemoglobin 13.2 g/dL (12.0-15.0); Immature Granulocyte Absolute 0.06 K/mm3 (0.00-0.031); Immature Granulocyte Percent A 0.4 % (0-0.5); Lymphocytes Absolute Auto 2.62 K/mm3 (0.9-3.2); Lymphocytes Percent Auto 17.4 % (18.3-44.2); Mean Corpuscular HGB Conc 32.3 g/dl (32-36); Mean Corpuscular Volume 83.8 fl (80-100); Monocytes Absolute Auto 1.3 K/mm3 (0.1-0.6); Monocytes Percent Auto 8.8 % (2.6-8.5); Neutrophils Percent Auto 73.1 % (45.5-73.1); Platelet Count Result 342 k/mm3 (150-375); Red Blood Count 4.88 M/mm3 (4.2-5.4); White Blood Count 15.1 K/mm3 (4.5-10.0)
[2025-02-05] MEDS: ACETAMINOPHEN 500 MG TABLET 1000 MG PO (05:50)
--- NOTE | 2025-02-05 07:00 | WPDANESPN ---
Anes - Prog Note Post-Op Date/Time: 02/05/25 07:00 Cardiovascular status: normal Respiratory status: normal Airway patency: baseline Mental status: baseline Post-Op hydration status: normal Vital Signs: Last Vital Signs Temp 98.2 F 02/05/25 04:00 Pulse 70 02/05/25 04:00 Resp 18 02/05/25 04:00 BP 148/90 H 02/05/25 04:00 Pulse Ox 98 02/05/25 04:00 O2 Del Method Room Air 02/05/25 04:00 O2 Flow Rate 8 02/04/25 09:15 Pain Score (VAS): 6 I/O: Intake & Output 02/04/25 02/04/25 02/05/25 15:59 23:59 07:59 Intake Total 1150 300 400 Output Total 1260 200 400 Balance -110 100 0 Laboratory Tests 02/05/25 04:02 02/05/25 04:02 WBC 15.1 H RBC 4.88 Hgb 13.2 Hct 40.9 MCV 83.8 MCH 27.0 MCHC 32.3 RDW 14.0 Plt Count 342 MPV 10.0 Immature Gran % (Auto) 0.4 Neut % (Auto) 73.1 Lymph % (Auto) 17.4 L [place] % (Auto) 8.8 H Eos % (Auto) 0.1 Baso % (Auto) 0.2 Lymph # (Auto) 2.62 [place] # (Auto) 1.3 H Eos # (Auto) 0.0 Baso # (Auto) 0.0 Abs Immat Gran (auto) 0.06 H Absolute Neuts (auto) 11.0 H Absolute Nucleated RBC 0.000 Nucleated RBC % 0.0 Post-procedural complaints: nausea and vomiting Patient Feedback: Patient satisfied with anesthetic care. Other Findings: PONV resolved, required meds X 1. better this am. pt rates pain 6/10 but states her pain meds is providing adequate coverage
[2025-02-05 08:05] VITALS: BP 153/95; PULSE 62; RESP 19; TEMP 37.1; O2SAT 97
[2025-02-05] MEDS: DOCUSATE SODIUM 100 MG CAPSULE PO (08:49)
[2025-02-05] MEDS: ENOXAPARIN 40 MG/0.4 ML SYRINGE SUB-Q (08:49)
[2025-02-05] MEDS: SIMETHICONE 80 MG TAB.CHEW PO (08:49)
--- NOTE | 2025-02-05 10:56 | PM.GYNPNOP ---
TRANSPORTATION ASSOCIATE - A/P Postoperative Procedures: Procedures Operation Date: 02/04/25 07:30 Actual Procedure Side Surgeon p Robotic Assisted Total Vaginal Hysterectomy with Bilateral Salpingectomy Bilateral Adolfo Arias MD Postoperative day: 1 Postoperative status: doing well Postoperative plan: routine post-op care and discharge Time Spent With Patient Time: Total time spent is greater than 50% in coordination of care (as documented) at patient's floor/unit and/or counseling patient: Time with patient: less than 15 minutes TRANSPORTATION ASSOCIATE- PN:Subj Post-Op Subjective Date/time seen: 02/05/25 10:56 Subjective: patient reports feeling better, patient has no complaints, pain is well controlled and patient is tolerating oral intake Exam Narrative: inc c/d/i GI: GI Palp: No abdominal tenderness and Yes Soft to palpation TRANSPORTATION ASSOCIATE - PN: Obj Data Vital Signs Vital Signs: Vital Signs - 24 hr 02/04/25 14:35 02/04/25 20:15 02/04/25 23:54 Temperature 97.7 F 98.1 F 97.5 F L Pulse Rate 62 65 67 Respiratory Rate 16 18 18 Blood Pressure 142/83 H 149/89 H 143/92 H Pulse Oximetry 98 96 96 Oxygen Delivery 02/05/25 04:00 02/05/25 04:00 02/05/25 07:05 Temperature 98.2 F Pulse Rate 70 Respiratory Rate 18 Blood Pressure 148/90 H Pulse Oximetry 98 Oxygen Delivery Room Air Room Air 02/05/25 08:05 Temperature 98.8 F Pulse Rate 62 Respiratory Rate 19 Blood Pressure 153/95 H Pulse Oximetry 97 Oxygen Delivery Intake/Output Intake/Output: Intake & Output 02/02/25 02/03/25 02/04/25 02/05/25 23:59 23:59 23:59 23:59 Intake Total 1450 400 Output Total 1460 400 Balance -10 0 Meds/Results Medications: Active Medications Generic Name Dose Route Start Last Admin Trade Name Freq PRN Reason Stop Dose Admin Acetaminophen 1,000 mg 02/04/25 12:00 02/05/25 05:50 Acetaminophen 500 Mg Tablet PO 1,000 mg Q6HR TRINO Administration Docusate Sodium 100 mg 02/04/25 10:14 02/05/25 08:49 Docusate Sodium 100 Mg Capsule PO 100 mg BID TRINO Administration Enoxaparin Sodium 40 mg 02/04/25 10:14 02/05/25 08:49 Enoxaparin 40 Mg/0.4 Ml Syringe SUB-Q 40 mg DAILY TRINO Administration Naloxone HCl 0.1 mg 02/04/25 10:14 Naloxone Hcl 0.4 Mg/Ml Vial IV PUSH Q2M PRN Respiratory rate less than 10 Ondansetron HCl 4 mg 02/04/25 10:14 Ondansetron Inj 4 Mg/2 Ml Vial IV PUSH Q6H PRN Nausea And Vomiting Oxycodone HCl 5 mg 02/04/25 10:14 02/04/25 17:24 Oxycodone Hcl (*Crx) 5 Mg Tab Ir PO 5 mg Q4H PRN Administration Pain Rated 4-6 Oxycodone HCl 10 mg 02/04/25 10:14 Oxycodone Hcl (*Crx) 5 Mg Tab Ir PO Q6H PRN Pain Rated 7-10 Simethicone 80 mg 02/04/25 12:00 02/05/25 08:49 Simethicone 80 Mg Tab.Chew PO 80 mg TIDWM TRINO Administration Labs 02/05/25 04:02 Labs: Laboratory Results - last 24 hr 02/05/25 04:02 WBC 15.1 H RBC 4.88 Hgb 13.2 Hct 40.9 MCV 83.8 MCH 27.0 MCHC 32.3 RDW 14.0 Plt Count 342 MPV 10.0 Immature Gran % (Auto) 0.4 Neut % (Auto) 73.1 Lymph % (Auto) 17.4 L [place] % (Auto) 8.8 H Eos % (Auto) 0.1 Baso % (Auto) 0.2 Lymph # (Auto) 2.62 [place] # (Auto) 1.3 H Eos # (Auto) 0.0 Baso # (Auto) 0.0 Abs Immat Gran (auto) 0.06 H Absolute Neuts (auto) 11.0 H Absolute Nucleated RBC 0.000 Nucleated RBC % 0.0
== END 2025-02-05 11:20 | disposition home or self-care (01) ==
LOC: ANHSURGERY 06:00 → ANHOB2 10:16
PROVIDERS: PCP Family Medicine; Visit Provider Obstetrics & Gynecology
PROC: (CPT 58552; principal; 2025-02-04 07:30)
DX: N85.8 Other specified noninflammatory disorders of uterus (principal); I10 Essential (primary) hypertension; E66.9 Obesity, unspecified; Z68.38 Body mass index [BMI] 38.0-38.9, adult; Z79.891 Long term (current) use of opiate analgesic; Z98.84 Bariatric surgery status; Z98.51 Tubal ligation status; Z98.891 History of uterine scar from previous surgery; Z87.891 Personal history of nicotine dependence; Z82.49 Family history of ischemic heart disease and other diseases of the circulatory system
CPT/HCPCS: 58552; S2900; 36415; 85025; 88307; 99199; A9270; J0690; J1100; J1171; J1650; J1885; J2003; J2250; J2405; J2704; J3010; J7120; J7121

== ENCOUNTER 2025-07-18 15:25 | Outpatient (CLI) | payer BC, SELFPAY ==
--- NOTE | 2025-07-18 15:34 | ECG_ITS ---
Test Date: 2025-07-18 15:44:17 Measurements Intervals [place] Rate: 59 P: 57 [place]: 156 QRS: 8 QRSD: 96 T: 13 QT: 397 QTc: 395 Interpretive Statements SINUS BRADYCARDIA WITH SINUS ARRHYTHMIA Electronically Signed On 07-18-2025 20:03:06 [employer] by Delbert Alexander D.O
== END 2025-07-18 15:26 | disposition home or self-care (01) ==
LOC: ANHCARD 15:28
PROVIDERS: PCP Family Medicine Adolescent Medicine
DX: I49.8 Other specified cardiac arrhythmias (principal); I10 Essential (primary) hypertension; R00.1 Bradycardia, unspecified
CPT/HCPCS: 93005